=== PATIENT | male | born 2000 | race African-American/Black ===

== ENCOUNTER 2024-06-24 09:45 | Emergency (ER) | payer OTHER ==
[~2024-06-24] VITALS: Ht 190.5 cm; Wt 116.6 kg
[2024-06-24] MEDS: IBUPROFEN 600MG TAB PO ONE (12:47)
[2024-06-24] MEDS: ACETAMINOPHEN 325 MG TAB PO ONE (12:47)
[2024-06-24 14:29] VITALS: BP 126/72; TEMP 97.4; O2SAT 100
== END 2024-06-24 14:29 | disposition home or self-care (01) ==
LOC: M ED 09:45
DX: M79.604 Pain in right leg (principal)